=== PATIENT | male | born 1995 | race Caucasian/White ===

== ENCOUNTER 2018-05-19 21:44 | Emergency (ER) | payer BC ==
[~2018-05-19] VITALS: Ht 170.2 cm; Wt 74.8 kg
[~2018-05-19 21:44] MED LIST: AMOCLA500; CARB100ER PO; CEPH500 PO; CRUTCH4 USE; CYCL10 PO; ERYT.5TO OS; FLUO10; HYDACE5 PO; IBUP600 PO; Keflex500 MG PO; LAMO100 PO; NAPR500 PO; Norco 5-325 Ta1 EACH PO; SUBOXONE 2 MG-1 EACH SL; SUBOXONE 4 MG-1 EACH SL; SUBOXONE 8 MG-1 EACH SL; TRAM50 PO; ZOLOFT
== END 2018-05-19 22:28 | disposition home or self-care (01) ==
LOC: ER 21:44
DX: S40.011A Contusion of right shoulder, initial encounter (principal); G40.909 Epilepsy, unspecified, not intractable, without status epilepticus; F17.200 Nicotine dependence, unspecified, uncomplicated; W19.XXXA Unspecified fall, initial encounter
CPT/HCPCS: 71045; 73030; 90714; 99283-25

== ENCOUNTER 2018-08-25 13:31 | Emergency (ER) | payer BC ==
[~2018-08-25] VITALS: Ht 170.2 cm; Wt 68.0 kg
[2018-08-25] MEDS ORDERED: LAMO25 PO (13:38)
== END 2018-08-25 13:59 | disposition left against medical advice (07) ==
LOC: ER 13:31
DX: Z53.21 Procedure and treatment not carried out due to patient leaving prior to being seen by health care provider (principal)

== ENCOUNTER 2018-12-16 17:29 | Emergency (ER) | payer BC ==
[~2018-12-16] VITALS: Ht 172.7 cm; Wt 63.5 kg
[~2018-12-16 17:29] MED LIST changes: +LAMO25 PO
== END 2018-12-16 17:43 | disposition home or self-care (01) ==
LOC: ER 17:29
DX: T40.1X1A Poisoning by heroin, accidental (unintentional), initial encounter (principal); Z79.899 Other long term (current) drug therapy; G40.909 Epilepsy, unspecified, not intractable, without status epilepticus; F17.200 Nicotine dependence, unspecified, uncomplicated
CPT/HCPCS: 99284

== ENCOUNTER 2019-10-27 21:05 | Emergency (ER) | payer SELFPAY ==
[~2019-10-27] VITALS: Ht 170.2 cm; Wt 65.8 kg
== END 2019-10-28 00:26 | disposition home or self-care (01) ==
LOC: ER 21:05
DX: S62.512A Displaced fracture of proximal phalanx of left thumb, initial encounter for closed fracture (principal); S16.1XXA Strain of muscle, fascia and tendon at neck level, initial encounter; S20.211A Contusion of right front wall of thorax, initial encounter; G40.909 Epilepsy, unspecified, not intractable, without status epilepticus; F17.200 Nicotine dependence, unspecified, uncomplicated; Z87.81 Personal history of (healed) traumatic fracture; V19.9XXA Pedal cyclist (driver) (passenger) injured in unspecified traffic accident, initial encounter
CPT/HCPCS: 70450; 71046; 72125; 73130; 99284-25; L3917

== ENCOUNTER → 2020-09-01 | Outpatient (CLI) | payer OTHER ==
[2020-09-01 15:46] LABS: Alanine Aminotransfer (ALT/SGP 79 U/L (12-78); Albumin, Blood 3.7 g/dL (3.4-5.0); Alk Phos 93 U/L (40-126); Anion Gap 9 mmol/L (6-16); Aspartate Aminotrans (AST/SGOT 22 U/L (12-37); Bilirubin, Direct 0.1 mg/dL (0.0-0.3); Bilirubin, Indirect 0.2 mg/dL (0.1-0.7); Bilirubin, Total 0.3 mg/dL (0.1-1.0); Blood Urea Nitrogen 16 mg/dL (8-24); Bun/Creatinine Ratio 17.8 (12.0-20.0); CO2, Blood 28 mmol/L (21-32); Calcium, Blood 8.8 mg/dL (8.5-10.1); Chloride, Blood 104 mmol/L (98-108); Globulin, Blood 3.8 g/dL (2.2-4.0); Glomerular Filtration Rate >60 (60-); Glucose, Blood 98 mg/dL (70-99); Sodium, Blood 141 mmol/L (136-145); Total Protein, Blood 7.5 g/dL (6.4-8.2)
[2020-09-02 07:09] LABS: HBSAG SCREEN Negative (Negative); HEP A AB, IGM Negative (Negative); HEP B CORE AB, IGM Negative (Negative); HEP B CORE AB, TOT Negative (Negative); HEP C VIRUS AB >11.0 (0.0-0.9); HIV SCREEN 4TH GENERATION WRFX Non Reactive (Non Reactive)
[2020-09-03 10:10] LABS: HCV LOG10 2.934 (.); HEPATITIS C QUANTITATION 860 IU/mL (.)
== END ==
LOC: LAB SHORT 13:38
PROVIDERS: General Practice
DX: Z02.9 Encounter for administrative examinations, unspecified (principal)
CPT/HCPCS: 80053; 82248; 86592; 86704; 86708; 86803; 87340; 87389; 87522

== ENCOUNTER 2020-10-07 15:59 | Emergency (ER) | payer OTHER ==
[~2020-10-07] VITALS: Ht 170.2 cm; Wt 72.6 kg
[2020-10-07 17:31] LABS: Source, Urine Clean Catch
[2020-10-07 17:41] LABS: Appearance, Urine Clear (Clear); Bilirubin, Urine Neg (Neg); Blood, Urine Neg (Neg); Color, Urine Yellow (P-Yellow); Glucose Qualitative, Urine Neg (Neg); Ketones, Urine Neg (Neg); Leukocyte Esterase, Urine 1+ (Neg); Nitrite, Urine Neg (Neg); Protein, Urine 2+ (Neg); Urobilinogen, Urine NORM (Normal)
[2020-10-07] MEDS ORDERED: DOXY100 PO (17:48)
[2020-10-07 18:05] LABS: Bacteria Many /hpf; Mucus Light (0-Heavy); Red Blood Cells, Urine Not Seen /hpf (0-2); Squamous Epithelial Cells Rare /hpf (Few)
[2020-10-09 01:07] LABS: CHLAMYDIA TRACHOMATIS, NAA Negative (Negative)
== END 2020-10-07 18:12 | disposition home or self-care (01) ==
LOC: ER 15:59
PROVIDERS: Physician Assistant
DX: N34.2 Other urethritis (principal); F17.200 Nicotine dependence, unspecified, uncomplicated
CPT/HCPCS: 81001; 87086; 87491; 87591; 96372; 99283-25; A9270; J0696